=== PATIENT | female | born 1960 | race Caucasian/White ===

== ENCOUNTER 2018-01-17 17:03 | Inpatient (IN) ==
[2018-01-17] MEDS ORDERED: Acetaminophen 325 MG Tablet PO ONE (17:18)
[2018-01-17] MEDS ORDERED: Sod Chloride 0.9% Inj 1,000 ML IV.SIG SCH (17:30)
--- NOTE | 2018-01-17 17:32 | ED ---
HPI General Chief Complaint: Fever Stated Complaint: fever/chills/nausea/weakness/hx kidney trans Time Seen by Provider: 01/17/18 17:09 Source: patient Mode of arrival: ambulatory Limitations: no limitations History of Present Illness HPI Narrative: The patient is a 57-year-old female who presents to the emergency department for fever, chills, malaise, and myalgias. The patient is a 57-year-old female who has a history of kidney and pancreatic transplant that was performed at the [facility] in [place], [place]. The patient is followed locally by her primary physician, Dr. Jose Pollard, and her dry end operator, Dr. Garcia. The patient states she is currently on CellCept and Prograf, was on prednisone 3 weeks ago for 1 week for possible early rejection. The patient states she developed chills on Wednesday and currently complains of chills, subjective fever, mild myalgias, and generalized malaise. The patient called the nurse at the [facility] earlier today and another individual called her back stating that there was urine in her urine sample from last Wednesday, performed at [facility]. The patient is unsure if there is any culture performed. The patient called her primary physician, Dr. Pollard, who prescribed her doxycycline and Cipro and schedule an appointment for tomorrow morning. However, he advised her to come to the emergency department immediately if her symptoms progressed. The patient notes a minimal dry nonproductive cough which is chronic, mild nausea, but denies any vomiting, diarrhea, or abdominal pain. She denies any dysuria. The patient did receive her influenza vaccination this year. The patient's symptoms are moderate and progressive. MD complaint: Reports fever, malaise and weakness Onset (ago): day(s) Temperature Source: subjective Context: Reports on immunosuppressant(s) Associated symptoms: Reports chills, myalgias and nausea Relieving factors: nothing Exacerbating factors: nothing Treatments prior to arrival fever: Reports antibiotics Related Data Home Medications Medication Instructions Recorded Confirmed aspirin [Aspirin Low Dose] 81 mg PO DAILY 01/17/18 01/17/18 cholecalciferol (vitamin D3) 2,000 unit PO DAILY 01/17/18 01/17/18 [Vitamin D3] gabapentin 100 mg PO HS 01/17/18 01/17/18 magnesium 0 mg PO DAILY 01/17/18 01/17/18 metoprolol tartrate 100 mg PO BID 01/17/18 01/17/18 multivitamin 1 tab PO DAILY 01/17/18 01/17/18 mycophenolate mofetil [CellCept] 500 mg PO BID 01/17/18 01/17/18 nifedipine 30 mg PO BID 01/17/18 01/17/18 spironolactone 25 mg PO DAILY 01/17/18 01/17/18 tacrolimus [Prograf] 2 mg PO Q12H 01/17/18 01/17/18 Allergies Allergy/AdvReac Type Severity Reaction Status Date / Time No Known Allergies Allergy Verified 01/17/18 17:47 Review of Systems ROS: all other systems reviewed are negative [facility] Medical History Medical History Blind right eye (Acute) Chronic back pain (Acute) High cholesterol (Acute) Hypertension (Acute) Surgical History Surgical History Kidney transplant status (Acute) Pancreas transplant status (Acute) Social History Social History Substance History: No History of Abuse Smoking Status: Former smoker How Often Do You Have a Drink Containing Alcohol: Never Recent Travel in [facility] within the Last 8 Weeks: No Recent Out of Country Travel within the Last 8 Weeks: No Exam Narrative Exam Narrative: GENERAL: Awake, alert, pleasant 57-year-old female who appears her stated age and is in no acute respiratory distress. SKIN: Focused skin assessment warm/dry. HEAD: Atraumatic. Normocephalic. EYES: Pupils equal and round. No scleral icterus. No injection or drainage. ENT: No nasal bleeding or discharge. Mucous membranes pink and moist. NECK: Trachea midline. No JVD. CARDIOVASCULAR: Regular, tachycardic with a heart rate of 100. RESPIRATORY: No accessory muscle use. Clear to auscultation. Breath sounds equal bilaterally. GASTROINTESTINAL: Abdomen soft, well-healed scar from the umbilicus inferiorly, no rebound tenderness, guarding, rigidity. MUSCULOSKELETAL: No obvious deformities. No clubbing. No cyanosis. No edema. NEUROLOGICAL: Awake and alert. No obvious cranial nerve deficits. Motor grossly within normal limits. Normal speech. PSYCHIATRIC: Appropriate mood and affect; insight and judgment normal. Course Initial Documented Vital Signs Temperature 100 F H 01/17/18 17:08 Pulse Rate 101 H 01/17/18 17:08 Respiratory Rate 16 01/17/18 17:08 Blood Pressure 130/60 01/17/18 17:08 Pulse Oximetry 96 01/17/18 17:08 Last Documented Vital Signs Temperature 98.7 F 01/17/18 18:30 Pulse Rate 78 01/17/18 18:30 Respiratory Rate 18 01/17/18 18:30 Blood Pressure 146/67 H 01/17/18 18:30 Pulse Oximetry 96 01/17/18 18:30 Medical Decision Making MDM Narrative Medical decision making narrative: IV was established, labs are drawn and sent, and the patient was placed on cardiac telemetry monitoring and continuous pulse oximetry monitoring. Lactic acid, blood culture, and UA with urine culture were sent to lab. Chest x-ray was obtained. Influenza screen was sent to lab. The patient was administered 1 L of IV fluids, Zofran 4 mg intravenously, and cefepime 2 g intravenously. Chest x-ray is unremarkable. Influenza screen is negative. White count is within normal limits and lactic acid is unremarkable. UA does reveal WBCs, patient is already had Cipro and doxy, therefore, urine culture was ordered. Blood cultures are pending. I discussed the patient with her transplant dry end operator, Dr. Garcia, who recommends admission. The patient has [facility], therefore, I discussed the patient with Dr. Posey who agrees with admission. I also discussed the patient with Dr. Pollard, he is aware the patient will be admitted, as he is the patient's primary physician. Medical Screen Exam Complete: Yes Emergency Medical Condition: Yes Differential Diagnosis Differential Diagnosis: Differential diagnosis includes sepsis, UTI, pyelonephritis, influenza, pneumonia, immunosuppressed, viral syndrome, renal failure, rejection, dehydration. Lab Data Result diagrams: 01/17/18 17:35 01/17/18 17:35 Lab Results 01/17/18 01/17/18 01/17/18 Range/Units 17:30 17:35 17:35 CBC w Diff Auto diff final WBC 8.8 (4.0-11.0) th/mm3 RBC 3.58 L (4.00-5.30) mil/mm3 Hgb 11.2 L (11.6-15.3) gm/dL Hct 33.2 L (35.0-46.0) % MCV 92.5 (80.0-100.0) fL MCH 31.2 (27.0-34.0) pg MCHC 33.7 (32.0-36.0) % RDW 12.8 (11.6-17.2) % Plt Count 278 (150-450) th/mm3 MPV 7.9 (7.0-11.0) fL Neut % (Auto) 71.7 H (16.0-70.0) % Lymph % (Auto) 18.6 (9.0-44.0) % Walsh % (Auto) 9.1 H (0.0-8.0) % Eos % (Auto) 0.4 (0.0-4.0) % Baso % (Auto) 0.2 (0.0-2.0) % Neut # (Auto) 6.4 (1.8-7.7) th/mm3 Lymph # (Auto) 1.6 (1.0-4.8) th/mm3 Walsh # (Auto) 0.8 (0.0-0.9) th/mm3 Eos # (Auto) 0.0 (0.0-0.4) th/mm3 Baso # (Auto) 0.0 (0.0-0.2) th/mm3 WBC Differential . Differential Comment . Sodium 133 L (136-145) meq/L Potassium 4.3 (3.5-5.1) meq/L Chloride 101 (98-107) meq/L Carbon Dioxide 24.4 (21.0-32.0) meq/L Anion Gap 8 (5-15) meq/L BUN 20 H (7-18) mg/dL Creatinine 1.50 H (0.50-1.00) mg/dL Estimated GFR 36 L (>89) mL/min Random Glucose 128 H (74-106) mg/dL Lactic Acid (0.4-2.0) mmol/L Calcium 8.8 (8.5-10.1) mg/dL Magnesium 1.7 (1.5-2.5) mg/dL Total Bilirubin 1.0 (0.2-1.0) mg/dL AST 56 H (15-37) U/L ALT 60 H (10-53) U/L Alkaline Phosphatase 431 H (45-117) U/L Total Protein 7.5 (6.4-8.2) g/dL Albumin 3.3 L (3.4-5.0) g/dL Urine Color Yellow (Yellw/Straw) Urine Clarity Clear (Clear) Urine pH 8.0 (5.0-8.5) Ur Specific [place] 1.020 (1.002-1.035) Urine Protein Trace (Neg-Trace) mg/dL Urine Glucose (UA) Negative (Negative) mg/dL Urine Ketones Negative (Negative) mg/dL Urine Occult Blood Negative (Negative) Urine Nitrate Negative (Negative) Urine Bilirubin Negative (Negative) Urine Urobilinogen 0.2 (Less than 2) mg/dL Ur Leukocyte Esterase Negative (Negative) Urine RBC 0-3 (0-3) /hpf Urine WBC 9-20 H (0-5) /hpf Ur Squamous Epith Cells 0-5 (0-5) /hpf Urine Bacteria Few H (None) /hpf Urine Mucus Rare H (Occasional) /lpf Micro UA Comment Culture not ind Ur Microscopic Review Microscopic reviewed Urine Culture Comments Culture not ind 01/17/18 Range/Units 17:35 CBC w Diff WBC (4.0-11.0) th/mm3 RBC (4.00-5.30) mil/mm3 Hgb (11.6-15.3) gm/dL Hct (35.0-46.0) % MCV (80.0-100.0) fL MCH (27.0-34.0) pg MCHC (32.0-36.0) % RDW (11.6-17.2) % Plt Count (150-450) th/mm3 MPV (7.0-11.0) fL Neut % (Auto) (16.0-70.0) % Lymph % (Auto) (9.0-44.0) % Walsh % (Auto) (0.0-8.0) % Eos % (Auto) (0.0-4.0) % Baso % (Auto) (0.0-2.0) % Neut # (Auto) (1.8-7.7) th/mm3 Lymph # (Auto) (1.0-4.8) th/mm3 Walsh # (Auto) (0.0-0.9) th/mm3 Eos # (Auto) (0.0-0.4) th/mm3 Baso # (Auto) (0.0-0.2) th/mm3 WBC Differential Differential Comment Sodium (136-145) meq/L Potassium (3.5-5.1) meq/L Chloride (98-107) meq/L Carbon Dioxide (21.0-32.0) meq/L Anion Gap (5-15) meq/L BUN (7-18) mg/dL Creatinine (0.50-1.00) mg/dL Estimated GFR (>89) mL/min Random Glucose (74-106) mg/dL Lactic Acid 1.3 (0.4-2.0) mmol/L Calcium (8.5-10.1) mg/dL Magnesium (1.5-2.5) mg/dL Total Bilirubin (0.2-1.0) mg/dL AST (15-37) U/L ALT (10-53) U/L Alkaline Phosphatase (45-117) U/L Total Protein (6.4-8.2) g/dL Albumin (3.4-5.0) g/dL Urine Color (Yellw/Straw) Urine Clarity (Clear) Urine pH (5.0-8.5) Ur Specific [place] (1.002-1.035) Urine Protein (Neg-Trace) mg/dL Urine Glucose (UA) (Negative) mg/dL Urine Ketones (Negative) mg/dL Urine Occult Blood (Negative) Urine Nitrate (Negative) Urine Bilirubin (Negative) Urine Urobilinogen (Less than 2) mg/dL Ur Leukocyte Esterase (Negative) Urine RBC (0-3) /hpf Urine WBC (0-5) /hpf Ur Squamous Epith Cells (0-5) /hpf Urine Bacteria (None) /hpf Urine Mucus (Occasional) /lpf Micro UA Comment Ur Microscopic Review Urine Culture Comments Imaging Data Radiologist's impression: Chest X-Ray 01/17/18 17:18 CONCLUSION: No acute findings. ECG Data EKG Prior to Arrival: No Attestation: I personally reviewed and interpreted this ECG as follows: Interpretation: EKG reveals normal sinus rhythm with a rate 87. Inverted T wave in lead III. Discharge Plan Discharge Disposition Patient Disposition: ED Admit(ED Internal Use Only) Discharge Condition Condition: Stable Discharge Order Discharge Orders: ED Use Only Admit Order (Routine); Ordered 01/17/18 Ordered By: Ad Sage Discharge Details Diagnosis: Pyelonephritis, Immunocompromised, Renal insufficiency Physicians Team ED Provider: Ad Sage Primary Care Provider: Rick Pollard Rxs /Orders / Referrals /Forms Prescriptions: No Action multivitamin Tablet 1 tab PO DAILY RF: 0 metoprolol tartrate 100 mg Tablet 100 mg PO BID RF: 0 nifedipine 30 mg Tablet Extended Release 30 mg PO BID RF: 0 aspirin [Aspirin Low Dose] 81 mg Tablet,Delayed Release (Dr/Ec) 81 mg PO DAILY RF: 0 spironolactone 25 mg Tablet 25 mg PO DAILY RF: 0 mycophenolate mofetil [CellCept] 500 mg Tablet 500 mg PO BID RF: 0 magnesium 250 mg Tablet PO DAILY RF: 0 gabapentin 100 mg Capsule 100 mg PO HS RF: 0 tacrolimus [Prograf] 1 mg Capsule 2 mg PO Q12H RF: 0 cholecalciferol (vitamin D3) [Vitamin D3] 2,000 unit Capsule 2,000 unit PO DAILY RF: 0 Discharge Interventions Interventions: Vital Signs Last Done: 01/17/18 18:30 Status ED Status: Admitted Patient
[2018-01-17 17:52] LABS: Baso % (Auto) 0.2 % (0.0-2.0); Eos % (Auto) 0.4 % (0.0-4.0); Hematocrit 33.2 % (35.0-46.0); Hemoglobin 11.2 gm/dL (11.6-15.3); Lymph # (Auto) 1.6 th/mm3 (1.0-4.8); Lymph % (Auto) 18.6 % (9.0-44.0); Mean Corpuscular HGB Conc 33.7 % (32.0-36.0); Mean Corpuscular Hemoglobin 31.2 pg (27.0-34.0); Mean Corpuscular Volume 92.5 fL (80.0-100.0); Mean Platelet Volume 7.9 fL (7.0-11.0); Mono # (Auto) 0.8 th/mm3 (0.0-0.9); Mono % (Auto) 9.1 % (0.0-8.0); Neut # (Auto) 6.4 th/mm3 (1.8-7.7); Neut % (Auto) 71.7 % (16.0-70.0); Platelet Count 278 th/mm3 (150-450); Red Blood Count 3.58 mil/mm3 (4.00-5.30); Red Cell Distribution Width 12.8 % (11.6-17.2); White Blood Count 8.8 th/mm3 (4.0-11.0)
[2018-01-17 17:55] LABS: Bilirubin,Urine Negative (Negative); Clarity,Urine Clear (Clear); Color,Urine Yellow (Yellw/Straw); Glucose,Urine (UA) Negative (Negative); Leukocyte Esterase,Urine Negative (Negative); Nitrite,Urine Negative (Negative); Urobilinogen,Urine 0.2 mg/dL (Less than 2)
[2018-01-17 18:06] LABS: Bacteria,Urine Few /hpf; Mucus,Urine Rare /lpf (Occasional); RBC,Urine 0-3 /hpf (0-3); Squamous Epithelial Cell,Urine 0-5 /hpf (0-5)
[2018-01-17 18:16] LABS: Chloride 101 meq/L (98-107); Potassium 4.3 meq/L (3.5-5.1); Sodium 133 meq/L (136-145)
[2018-01-17 18:20] LABS: Albumin 3.3 g/dL (3.4-5.0); Anion Gap 8 meq/L (5-15); Blood Urea Nitrogen 20 mg/dL (7-18); Calcium 8.8 mg/dL (8.5-10.1); Carbon Dioxide 24.4 meq/L (21.0-32.0); Glucose,Random 128 mg/dL (74-106); Magnesium 1.7 mg/dL (1.5-2.5)
--- NOTE | 2018-01-17 18:21 | XR ---
EXAM DATE: 01/17/2018 6:16 PM EST AGE/SEX: 57 years / Female INDICATIONS: Vomiting, nausea, fever. CLINICAL DATA: This is the patient's initial encounter. Patient reports that signs and symptoms have been present for 2 days and indicates a pain score of 5/10. MEDICAL/SURGICAL HISTORY: Renal disease. . Kidney and pancreas transplant. COMPARISON: No prior exams available for comparison. FINDINGS: A single AP view of the chest demonstrates the lungs to be symmetrically aerated without evidence of mass, infiltrate or effusion. The cardiomediastinal contours are unremarkable. Osseous structures a re intact. CONCLUSION: No acute findings. Electronically signed by: Lokesh Burrows MD 01/17/2018 6:19 PM EST
[2018-01-17 18:23] LABS: Alanine Aminotransferase 60 U/L (10-53); Aspartate Aminotransferase 56 U/L (15-37); Glomerular Filtration Rate 36 mL/min (>89)
[2018-01-17 18:25] LABS: Total Protein 7.5 g/dL (6.4-8.2)
[2018-01-17 18:26] LABS: Alkaline Phosphatase 431 U/L (45-117)
[2018-01-17] MEDS ORDERED: Acetaminophen 325 MG Tablet PO PRN (19:37)
[2018-01-17] MEDS: Metoprolol Tartrate 100 MG Tablet PO SCH (20:33)
[2018-01-17] MEDS: Gabapentin 100 MG Capsule PO SCH (20:33)
[2018-01-17] MEDS: Sod Chloride 0.9% Inj 1,000 ML IV.CONT SCH (20:45)
[2018-01-17] MEDS: Senna/Docusate Sodium 8.6/50 MG Tablet PO SCH (21:23)
[2018-01-18] MEDS: Sod Chloride 0.9% Inj 1,000 ML IV.CONT SCH (05:13)
[2018-01-18 06:11] LABS: Baso % (Auto) 0.1 % (0.0-2.0); Eos % (Auto) 0.6 % (0.0-4.0); Hematocrit 31.2 % (35.0-46.0); Hemoglobin 10.2 gm/dL (11.6-15.3); Lymph % (Auto) 25.2 % (9.0-44.0); Mean Corpuscular HGB Conc 32.7 % (32.0-36.0); Mean Corpuscular Hemoglobin 30.3 pg (27.0-34.0); Mean Corpuscular Volume 92.6 fL (80.0-100.0); Mono # (Auto) 0.9 th/mm3 (0.0-0.9); Mono % (Auto) 11.4 % (0.0-8.0); Neut # (Auto) 4.8 th/mm3 (1.8-7.7); Neut % (Auto) 62.7 % (16.0-70.0); Platelet Count 243 th/mm3 (150-450); Red Blood Count 3.37 mil/mm3 (4.00-5.30); White Blood Count 7.8 th/mm3 (4.0-11.0)
[2018-01-18 06:31] LABS: Alanine Aminotransferase 60 U/L (10-53); Albumin 2.8 g/dL (3.4-5.0); Alkaline Phosphatase 373 U/L (45-117); Anion Gap 9 meq/L (5-15); Aspartate Aminotransferase 52 U/L (15-37); Blood Urea Nitrogen 17 mg/dL (7-18); Calcium 8.5 mg/dL (8.5-10.1); Carbon Dioxide 24.3 meq/L (21.0-32.0); Chloride 109 meq/L (98-107); Glomerular Filtration Rate 43 mL/min (>89); Glucose,Random 114 mg/dL (74-106); Potassium 4.3 meq/L (3.5-5.1); Sodium 142 meq/L (136-145); Total Protein 6.8 g/dL (6.4-8.2)
--- NOTE | 2018-01-18 08:35 | ECG ---
Date Performed: 01/17/2018 Time Performed: 17:30:11 PTAGE: 57 years EKG: Sinus rhythm BORDERLINE LEFT AXIS DEVIATION BORDERLINE ECG PREVIOUS TRACING : 12/05/2014 10.00 DOCTOR: Tariq Hunt Interpretating Date/Time 01/18/2018 08:31:37
[2018-01-18] MEDS: Senna/Docusate Sodium 8.6/50 MG Tablet PO SCH ×3 (09:07→21:30)
[2018-01-18] MEDS: Magnesium Oxide 400 MG Tablet PO SCH (09:09)
[2018-01-18] MEDS: Spironolactone 25 MG Tablet PO SCH (09:09)
[2018-01-18] MEDS: Metoprolol Tartrate 100 MG Tablet PO SCH ×2 (09:09→21:23)
--- NOTE | 2018-01-18 10:18 | P.CONNP ---
History of Present Illness Service: Nephrology Consult date: 01/18/18 Requesting Physician: Ad Sage Reason for Consult: Kidney and pancreas transplantation Primary Care Provider: Rick Pollard MD, PhD Chief Complaint: Fever History of Present Illness: Patient is a 57-year-old white female with history of kidney and pancreas transplant at [facility] over 2 years ago, she has been treated for borderline rejection about 3 months ago, patient has BK virus and developed urinary tract infection for which she was given oral antibiotics, Cipro and doxycycline, patient took 2 doses and no fever did not improve she has body aches as well and came to emergency with a fever and chills of 100 F, patient was treated with cefepime, urine cultures are pending and admitted for possible urinary tract infection, since last night her fever did improve. Patient has a creatinine of 1.3 which is around her baseline. She has been maintained on Prograf and CellCept. Review of Systems Constitutional: Reports chills, Reports fever(s), Reports weight gain Eyes: Denies blind spots, Denies blurry vision, Denies bulging eyes, Denies change in vision, Denies double vision, Denies discharge, Denies dry eyes, Denies floaters, Denies irritation, Denies itchy eyes, Denies loss of vision, Denies pain, Denies requires corrective lenses, Denies sensitivity to light, Denies other Ears, Nose, Mouth, and Throat: Denies abnormal hearing, Denies bleeding gums, Denies bad breath, Denies change in voice, Denies dental pain, Denies difficulty swallowing, Denies dizziness, Denies dry mouth, Denies ear discharge , Denies ear pain, Denies facial pain, Denies headache(s), Denies hearing loss, Denies hoarseness, Denies lip swelling, Denies nosebleed, Denies mouth lesions, Denies mouth pain, Denies nasal congestion, Denies nasal discharge, Denies nasal obstruction, Denies nasal trauma, Denies neck lump, Denies neck pain, Denies nose pain, Denies pain with swallowing, Denies poor balance, Denies post nasal drip, Denies ringing in the ears, Denies sinus pain, Denies sinus pressure , Denies sore throat, Denies throat swelling, Denies tongue swelling, Denies other Cardiovascular: Reports leg swelling, Denies chest pain, Denies chest pain at rest, Denies chest pain with activity, Denies excessive sweating, Denies fainting, Denies fast heart rate, Denies foot swelling, Denies generalized swelling, Denies irregular heart rhythm, Denies leg pain with activity, Denies leg sores, Denies lightheadedness, Denies radiating jaw, neck or arm pain, Denies rapid, pounding, or irregular heartbeat, Denies shortness of breath, Denies shortness of breath with activity, Denies shortness of breath when lying down, Denies shortness of breath causing sudden awakening, Denies slow heart rate, Denies other Respiratory: Denies change in phlegm color, Denies chest congestion, Denies cough, Denies coughing up blood, Denies excessive phlegm production, Denies pain on inspiration, Denies pain with cough, Denies shortness of breath, Denies shortness of breath with activity, Denies snoring, Denies stridor, Denies wheezing, Denies other Gastrointestinal: Denies abdominal pain, Denies belching, Denies black, tarry stools, Denies bloating, Denies bright, red blood in stools, Denies change in bowel habits, Denies constant urge to pass stool, Denies change in stools, Denies coffee ground vomit, Denies constipation, Denies cramping, Denies difficulty swallowing, Denies excessive passing of gas, Denies feeling full early, Denies heartburn, Denies incontinent of stools, Denies loose stools, Denies nausea, Denies pain with swallowing, Denies vomiting, Denies vomiting blood, Denies other Musculoskeletal: Denies abnormal walking, Denies back pain, Denies body aches, Denies decreased muscle mass, Denies deformity, Denies joint pain, Denies joint swelling, Denies limited joint movement, Denies loss of height, Denies muscle cramps, Denies neck pain, Denies numbness, Denies radiating pain into limb, Denies stiffness, Denies tingling, Denies other Neurologic: Reports weakness Endocrine: Denies cold intolerance, Denies excessive sweating, Denies flushing, Denies heat intolerance, Denies increased hunger, Denies increased thirst, Denies increased urination, Denies rapid, pounding, or irregular heartbeat, Denies other Hematologic/Lymphatic: Denies easy bleeding, Denies easy bruising, Denies enlarged lymph nodes, Denies other Allergic/Immunologic: Denies GI upset with certain foods, Denies hives, Denies itchy eyes, Denies lip swelling, Denies seasonal runny nose, Denies throat swelling, Denies tongue swelling, Denies wheezing, Denies other PMFSH - History History Provided By: Patient - Medical History Medical History: Medical History (Last Reviewed 01/18/18 @ 10:13 by James Garcia MD) Blind right eye Chronic back pain High cholesterol Hypertension - Surgical History Surgical History: Surgical History (Last Reviewed 01/18/18 @ 10:13 by James Garcia MD) Kidney transplant status Pancreas transplant status - Family History Family History: Family History (Last Updated 01/18/18 @ 10:13 by James Garcia MD) Other Family history non-contributory - Social History I have reviewed the patient's Social History: Yes - Tobacco History Second Hand Smoke Exposure: No Tobacco Use In Past 30 Days: No Smoking Status: Former smoker - Alcohol History How Often Do You Have a Drink Containing Alcohol: Never - Substance Use History Substance History: No History of Abuse - Travel History Recent Travel in the [place] Within the Last 8 Weeks: No Recent Travel Out of the Country Within the Last 8 Weeks: No - Immunization History Tetanus Immunization: >5 Years Hx Influenza Vaccine This Season: Yes Medications and Allergies Active Medications: Active Medications Acetaminophen (Tylenol) 650 mg PO Q4H PRN PRN Reason: Temp > 100.4 Last Admin: 01/18/18 00:52 Dose: 650 mg Al Hydroxide/Mg Hydroxide (Milk Of Kem Liq) 30 ml PO Q12H PRN PRN Reason: Mild Constipation Aspirin (Ecotrin) 81 mg PO DAILY [facility] Last Admin: 01/18/18 09:09 Dose: 81 mg Gabapentin (Neurontin) 100 mg PO HS [facility] Last Admin: 01/17/18 20:33 Dose: Not Given Sodium Chloride (Ns Inj) 1,000 mls @ 100 mls/hr IV.CONT .Q10H [facility] Last Admin: 01/18/18 05:13 Dose: 100 mls/hr Cefepime HCl 2,000 mg/ Sodium (Chloride) 100 mls @ 200 mls/hr IV.SIG Q12H [facility] Last Infusion: 01/18/18 05:45 Dose: Infused Magnesium Oxide (Mag-Ox) 400 mg PO DAILY [facility] Last Admin: 01/18/18 09:09 Dose: 400 mg Metoprolol Tartrate (Lopressor) 100 mg PO BID [facility] Last Admin: 01/18/18 09:09 Dose: 100 mg Multivitamins (Theragran) 1 tab PO DAILY [facility] Last Admin: 01/18/18 09:10 Dose: 1 tab Mycophenolate Mofetil (Cellcept) 500 mg PO BID@0600,1800 [facility] Last Admin: 01/18/18 06:46 Dose: 500 mg Nifedipine (Procardia Xl) 30 mg PO BID [facility] Last Admin: 01/18/18 09:10 Dose: 30 mg Ondansetron HCl (Zofran Inj) 4 mg IV.PUSH Q6H PRN PRN Reason: NAUSEA OR VOMITING Senna/Docusate Sodium (Arabella-Colace) 1 tab PO BID [facility] Last Admin: 01/18/18 09:07 Dose: Not Given Sodium Chloride (Ns Flush) 2 ml IV.FLUSH BID [facility] Last Admin: 01/18/18 09:10 Dose: Not Given Sodium Chloride (Ns Flush) 2 ml IV.FLUSH PRN PRN PRN Reason: FLUSH AFTER USING IV ACCESS Spironolactone (Aldactone) 25 mg PO DAILY [facility] Last Admin: 01/18/18 09:09 Dose: 25 mg Tacrolimus (Prograf) 2 mg PO Q12H [facility] Last Admin: 01/18/18 06:46 Dose: 2 mg Vitamin D (Vitamin D3) 2,000 unit PO DAILY [facility] Last Admin: 01/18/18 09:10 Dose: 2,000 unit Allergies Allergy/AdvReac Type Severity Reaction Status Date / Time No Known Allergies Allergy Verified 01/17/18 17:47 Home Medications Medication Instructions Recorded Confirmed Type aspirin [Aspirin Low Dose] 81 mg PO DAILY 01/17/18 01/17/18 History cholecalciferol (vitamin D3) 2,000 unit PO DAILY 01/17/18 01/17/18 History [Vitamin D3] gabapentin 100 mg PO HS 01/17/18 01/17/18 History magnesium 0 mg PO DAILY 01/17/18 01/17/18 History metoprolol tartrate 100 mg PO BID 01/17/18 01/17/18 History multivitamin 1 tab PO DAILY 01/17/18 01/17/18 History mycophenolate mofetil [CellCept] 500 mg PO BID 01/17/18 01/17/18 History nifedipine 30 mg PO BID 01/17/18 01/17/18 History spironolactone 25 mg PO DAILY 01/17/18 01/17/18 History tacrolimus [Prograf] 2 mg PO Q12H 01/17/18 01/17/18 History Exam Vital signs: Vital Signs 01/17/18 17:08 01/17/18 17:50 01/17/18 18:30 Temperature 100 F H 98.7 F Pulse Rate 101 H 72 78 Respiratory Rate 16 18 Blood Pressure 130/60 146/67 H Pulse Oximetry 96 94 L 96 01/17/18 19:20 01/17/18 20:00 01/17/18 21:03 Temperature 98.2 F 98.4 F 98.6 F Pulse Rate 80 82 83 Respiratory Rate 18 18 18 Blood Pressure 140/62 109/52 L 140/73 Pulse Oximetry 18 L 01/17/18 22:00 01/18/18 00:00 01/18/18 08:32 Temperature 97.8 F Pulse Rate 90 Respiratory Rate 18 Blood Pressure 118/56 L Pulse Oximetry 92 L 94 L 92 L 01/18/18 08:56 Temperature 98.8 F Pulse Rate 91 H Respiratory Rate 18 Blood Pressure 120/56 L Pulse Oximetry 93 L Intake & Output 01/17/18 01/18/18 01/18/18 18:59 06:59 18:59 Intake Total 1100 / 1100 1000 / 1000 Output Total 200 / 200 Balance 1100 / 1100 800 / 800 Weight 94 kg 90.2 kg Intake: IV 1100 / 1100 1000 / 1000 NS Inj 1,000 ML @ 100 mls/hr IV 900 / 900 .CONT .Q10H [facility] Rx#:[id number] Maxipime Inj 2,000 MG In NS Inj 100 / 100 100 / 100 100 ML @ 200 mls/hr IV.SIG Q12H [facility] Rx#:[id number] NS Inj 1,000 ML @ 1000 mls/hr 1000 / 1000 IV.SIG BOLUS [facility] Rx#:[id number] Oral 0 / 0 Output: Urine 200 / 200 Other: Date of Last Bowel Movement 01/17/18 01/17/18 Weight On Admission 93.1 kg Narrative: GENERAL: Well-nourished, well-developed patient. SKIN: Warm and dry. HEAD: Normocephalic. EYES: No scleral icterus. No injection or drainage. NECK: Supple, trachea midline. No JVD or lymphadenopathy. CARDIOVASCULAR: Regular rate and rhythm without murmurs, gallops, or rubs. RESPIRATORY: Breath sounds equal bilaterally. No accessory muscle use. GASTROINTESTINAL: Abdomen soft, non-tender, nondistended. EXTREMITIES: Mild edema NEUROLOGICAL: Awake, alert, and oriented x 3. Non-focal. Results - Lab Results 01/18/18 05:33 01/18/18 05:33 Most recent lab results Calcium 8.5 mg/dL (8.5-10.1) 01/18/18 05:33 Magnesium 1.7 mg/dL (1.5-2.5) 01/17/18 17:35 Assessment and Plan - Assessment (1) History of simultaneous kidney and pancreas transplant Code(s): Z94.0 - Kidney transplant status; Z94.83 - Pancreas transplant status Status: Acute (2) UTI (urinary tract infection) Code(s): N39.0 - Urinary tract infection, site not specified Status: Acute (3) Immunocompromised Code(s): D84.9 - Immunodeficiency, unspecified Status: Acute (4) Renal insufficiency Code(s): N28.9 - Disorder of kidney and ureter, unspecified Status: Acute (5) LFT elevation Code(s): R94.5 - Abnormal results of liver function studies Status: Acute - Plan Patient did responded to IV antibiotics and we will follow the cultures, she also has BK virus infection and is being followed at [facility] Once she is stable and on oral antibiotics, can be discharged to be followed at the [facility] Creatinine is at baseline 1.3 improved after hydration decline from 1.5 Blood sugar is elevated discussed 114 try to lose weight and be on diet Continue to hydrate she has history of elevated LFTS after her transplant and 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
--- NOTE | 2018-01-18 13:30 | P.HP ---
History of Present Illness Service: internal medicine Primary Care Physician: Rick Pollard MD, PhD Chief Complaint: Fever History of Present Illness: 57 y/o female s/p pancreas/kidney transplant who presented to the ER for fever and chills. She states startng last wednesday she was getting episodic chills and over the weekend she had a temp in the 100's, She called her [employer] field coordinator yesterday and was told that the urine she had done last wed showed white blood cells and possible infection. She states she called Dr Pollard for antibiotics and he offered to see her as well as give her antibiotics. She was also told to come to the ER if she felt worse. She had an appt with him today and picked up cipro and doxycycline yesterday of which she took one dose of each. At dinner time she was nauseous and sweaty and became anxious as her family was very concerned she may have an infection so she presented to the ER. She states her last episode of chills was aprox 1 am today. She denies nasal congesttion or sore throat. She has a cough that is chronic that is a little worse lately when she lays down at night, denies stomach pain or diarrhea, one episode of nausea with dinner last night that she thinks may be have been due to anxiety, She denies dysuria or urgency. she does have nocturia. - Diagnosis (1) Immunocompromised (2) Renal insufficiency (3) History of simultaneous kidney and pancreas transplant (4) UTI (urinary tract infection) (5) LFT elevation Inpatient Certification: I certify that the inpatient services were ordered in accordance with Medicare regulations governing the order. This includes certification that hospital inpatient services are reasonable and necessary and in the case of services not specified as inpatient-only under 42 CFR 419.22(n), that they are appropriately provided as inpatient services in accordance to with the 2-midnight benchmark under 43 CFR 412.3(e) Estimated Total Length of Stay (Days): 2 Plans for Post Hospital Care: Not yet determined Review of Systems All other systems reviewed negative except as stated in HPI [facility] - History History Provided By: Patient, Medical Record - Medical History Medical History: Medical History (Last Updated 01/18/18 @ 13:11 by Ashlyn Enriquez MD) Blind right eye Chronic back pain Fatty liver High cholesterol Hypertension - Surgical History Surgical History: Surgical History (Last Reviewed 01/18/18 @ 13:11 by Ashlyn Enriquez MD) Kidney transplant status Pancreas transplant status - Family History Family History: Family History (Last Reviewed 01/18/18 @ 13:11 by Ashlyn Enriquez MD) Other Family history non-contributory - Social History I have reviewed the patient's Social History: Yes - Tobacco History Second Hand Smoke Exposure: No Tobacco Use In Past 30 Days: No Smoking Status: Former smoker - Alcohol History How Often Do You Have a Drink Containing Alcohol: Never - Substance Use History Substance History: No History of Abuse - Travel History Recent Travel in the [place] Within the Last 8 Weeks: No Recent Travel Out of the Country Within the Last 8 Weeks: No - Immunization History Tetanus Immunization: >5 Years Hx Influenza Vaccine This Season: Yes Medications and Allergies Active Medications: Active Medications Acetaminophen (Tylenol) 650 mg PO Q4H PRN PRN Reason: Temp > 100.4 Last Admin: 01/18/18 00:52 Dose: 650 mg Al Hydroxide/Mg Hydroxide (Milk Of Kem Linelida) 30 ml PO Q12H PRN PRN Reason: Mild Constipation Aspirin (Ecotrin) 81 mg PO DAILY [facility] Last Admin: 01/18/18 09:09 Dose: 81 mg Gabapentin (Neurontin) 100 mg PO HS [facility] Last Admin: 01/17/18 20:33 Dose: Not Given Sodium Chloride (Ns Inj) 1,000 mls @ 100 mls/hr IV.CONT .Q10H [facility] Last Admin: 01/18/18 05:13 Dose: 100 mls/hr Cefepime HCl 2,000 mg/ Sodium (Chloride) 100 mls @ 200 mls/hr IV.SIG Q12H [facility] Last Infusion: 01/18/18 05:45 Dose: Infused Magnesium Oxide (Mag-Ox) 400 mg PO DAILY [facility] Last Admin: 01/18/18 09:09 Dose: 400 mg Metoprolol Tartrate (Lopressor) 100 mg PO BID [facility] Last Admin: 01/18/18 09:09 Dose: 100 mg Multivitamins (Theragran) 1 tab PO DAILY [facility] Last Admin: 01/18/18 09:10 Dose: 1 tab Mycophenolate Mofetil (Cellcept) 500 mg PO BID@0600,1800 [facility] Last Admin: 01/18/18 06:46 Dose: 500 mg Nifedipine (Procardia Xl) 30 mg PO BID [facility] Last Admin: 01/18/18 09:10 Dose: 30 mg Ondansetron HCl (Zofran Inj) 4 mg IV.PUSH Q6H PRN PRN Reason: NAUSEA OR VOMITING Senna/Docusate Sodium (Arabella-Colace) 1 tab PO BID [facility] Last Admin: 01/18/18 09:07 Dose: Not Given Sodium Chloride (Ns Flush) 2 ml IV.FLUSH BID [facility] Last Admin: 01/18/18 09:10 Dose: Not Given Sodium Chloride (Ns Flush) 2 ml IV.FLUSH PRN PRN PRN Reason: FLUSH AFTER USING IV ACCESS Spironolactone (Aldactone) 25 mg PO DAILY [facility] Last Admin: 01/18/18 09:09 Dose: 25 mg Tacrolimus (Prograf) 2 mg PO Q12H [facility] Last Admin: 01/18/18 06:46 Dose: 2 mg Vitamin D (Vitamin D3) 2,000 unit PO DAILY [facility] Last Admin: 01/18/18 09:10 Dose: 2,000 unit Allergies Allergy/AdvReac Type Severity Reaction Status Date / Time No Known Allergies Allergy Verified 01/17/18 17:47 Home Medications Medication Instructions Recorded Confirmed Type aspirin [Aspirin Low Dose] 81 mg PO DAILY 01/17/18 01/17/18 History cholecalciferol (vitamin D3) 2,000 unit PO DAILY 01/17/18 01/17/18 History [Vitamin D3] gabapentin 100 mg PO HS 01/17/18 01/17/18 History magnesium 0 mg PO DAILY 01/17/18 01/17/18 History metoprolol tartrate 100 mg PO BID 01/17/18 01/17/18 History multivitamin 1 tab PO DAILY 01/17/18 01/17/18 History mycophenolate mofetil [CellCept] 500 mg PO BID 01/17/18 01/17/18 History nifedipine 30 mg PO BID 01/17/18 01/17/18 History spironolactone 25 mg PO DAILY 01/17/18 01/17/18 History tacrolimus [Prograf] 2 mg PO Q12H 01/17/18 01/17/18 History Exam Vital signs: Vital Signs 01/17/18 17:08 01/17/18 17:50 01/17/18 18:30 Temperature 100 F H 98.7 F Pulse Rate 101 H 72 78 Respiratory Rate 16 18 Blood Pressure 130/60 146/67 H Pulse Oximetry 96 94 L 96 01/17/18 19:20 01/17/18 20:00 01/17/18 21:03 Temperature 98.2 F 98.4 F 98.6 F Pulse Rate 80 82 83 Respiratory Rate 18 18 18 Blood Pressure 140/62 109/52 L 140/73 Pulse Oximetry 18 L 01/17/18 22:00 01/18/18 00:00 01/18/18 08:32 Temperature 97.8 F Pulse Rate 90 Respiratory Rate 18 Blood Pressure 118/56 L Pulse Oximetry 92 L 94 L 92 L 01/18/18 08:56 01/18/18 12:58 Temperature 98.8 F 99.9 F H Pulse Rate 91 H 73 Respiratory Rate 18 18 Blood Pressure 120/56 L 125/62 Pulse Oximetry 93 L 95 Intake & Output 01/17/18 01/18/18 01/18/18 18:59 06:59 18:59 Intake Total 1100 / 1100 1000 / 1000 Output Total 200 / 200 Balance 1100 / 1100 800 / 800 Weight 94 kg 90.2 kg Intake: IV 1100 / 1100 1000 / 1000 NS Inj 1,000 ML @ 100 mls/hr IV 900 / 900 .CONT .Q10H [facility] Rx#:[id number] Maxipime Inj 2,000 MG In NS Inj 100 / 100 100 / 100 100 ML @ 200 mls/hr IV.SIG Q12H [facility] Rx#:[id number] NS Inj 1,000 ML @ 1000 mls/hr 1000 / 1000 IV.SIG BOLUS [facility] Rx#:[id number] Oral 0 / 0 Output: Urine 200 / 200 Other: Date of Last Bowel Movement 01/17/18 01/17/18 Weight On Admission 93.1 kg - Constitutional no acute distress, obese - Routine HEENT Exam Eye: Present: EOMI ENT: Present: mucous membranes moist, oropharynx clear - Routine Neck Exam Present: supple - Routine Respiratory Exam Present: CTA bilaterally - Routine Cardiovascular Exam Present: RRR - Routine Abdominal Exam Present: soft, normoactive bowel sounds - Routine Extremities Exam Present: edema Comments: trace edema - Routine Skin Exam Present: intact - Routine Neurological Exam Present: alert, oriented X3 Results - Labs CBC & Chem 7: 01/19/18 06:15 01/19/18 06:15 Labs: Laboratory Results - last 24 hr 01/17/18 01/17/18 01/17/18 17:30 17:35 17:35 CBC w Diff Auto diff final WBC 8.8 RBC 3.58 L Hgb 11.2 L Hct 33.2 L MCV 92.5 MCH 31.2 MCHC 33.7 RDW 12.8 Plt Count 278 MPV 7.9 Neut % (Auto) 71.7 H Lymph % (Auto) 18.6 [place] % (Auto) 9.1 H Eos % (Auto) 0.4 Baso % (Auto) 0.2 Neut # (Auto) 6.4 Lymph # (Auto) 1.6 [place] # (Auto) 0.8 Eos # (Auto) 0.0 Baso # (Auto) 0.0 WBC Differential . Differential Comment . Sodium 133 L Potassium 4.3 Chloride 101 Carbon Dioxide 24.4 Anion Gap 8 BUN 20 H Creatinine 1.50 H Estimated GFR 36 L Random Glucose 128 H Lactic Acid Calcium 8.8 Magnesium 1.7 Total Bilirubin 1.0 AST 56 H ALT 60 H Alkaline Phosphatase 431 H Total Protein 7.5 Albumin 3.3 L Urine Color Yellow Urine Clarity Clear Urine pH 8.0 Ur Specific [place] 1.020 Urine Protein Trace Urine Glucose (UA) Negative Urine Ketones Negative Urine Occult Blood Negative Urine Nitrate Negative Urine Bilirubin Negative Urine Urobilinogen 0.2 Ur Leukocyte Esterase Negative Urine RBC 0-3 Urine WBC 9-20 H Ur Squamous Epith Cells 0-5 Urine Bacteria Few H Urine Mucus Rare H Micro UA Comment Culture not ind Ur Microscopic Review Microscopic reviewed Urine Culture Comments Culture not ind 01/17/18 01/18/18 01/18/18 17:35 05:33 05:33 CBC w Diff Auto diff final WBC 7.8 RBC 3.37 L Hgb 10.2 L Hct 31.2 L MCV 92.6 MCH 30.3 MCHC 32.7 RDW 13.0 Plt Count 243 MPV 8.0 Neut % (Auto) 62.7 Lymph % (Auto) 25.2 [place] % (Auto) 11.4 H Eos % (Auto) 0.6 Baso % (Auto) 0.1 Neut # (Auto) 4.8 Lymph # (Auto) 2.0 [place] # (Auto) 0.9 Eos # (Auto) 0.0 Baso # (Auto) 0.0 WBC Differential . Differential Comment . Sodium 142 Potassium 4.3 Chloride 109 H D Carbon Dioxide 24.3 Anion Gap 9 BUN 17 Creatinine 1.30 H Estimated GFR 43 L Random Glucose 114 H Lactic Acid 1.3 Calcium 8.5 Magnesium Total Bilirubin 0.7 AST 52 H ALT 60 H Alkaline Phosphatase 373 H Total Protein 6.8 D Albumin 2.8 L Urine Color Urine Clarity Urine pH Ur Specific [place] Urine Protein Urine Glucose (UA) Urine Ketones Urine Occult Blood Urine Nitrate Urine Bilirubin Urine Urobilinogen Ur Leukocyte Esterase Urine RBC Urine WBC Ur Squamous Epith Cells Urine Bacteria Urine Mucus Micro UA Comment Ur Microscopic Review Urine Culture Comments - Imaging Impressions Chest X-Ray 01/17/18 17:18 CONCLUSION: No acute findings. Caprini VTE Risk Assessment Caprini VTE Risk Assessment: No/Low Risk (score <= 1) Caprini Risk Assessment Model: Point Value = 1 Point Value = 2 Point Value = 3 Point Value = 5 Age 41-60 Minor surgery BMI > 25 kg/m2 Swollen legs Varicose veins or History of unexplained or recurrent spontaneous Oral contraceptives or hormone replacement Sepsis (< 1 month) Serious lung disease, including pneumonia (< 1 month) Abnormal pulmonary function Acute myocardial infarction Congestive heart failure (< 1 month) History of inflammatory bowel disease Medical patient at bed rest Age 61-74 Arthroscopic surgery Major open surgery (> 45 min) Laparoscopic surgery (> 45 min) Malignancy Confined to bed (> 72 hours) Immobilizing plaster cast Central venous access Age >= 75 History of VTE Family history of VTE Factor V Leiden Prothrombin [id number] Lupus anticoagulant Anticardiolipin antibodies Elevated serum homocysteine Heparin-induced thrombocytopenia Other congenital or acquired thrombophilia Stroke (< 1 month) Elective arthroplasty Hip, pelvis, or leg fracture Acute spinal cord injury (< 1 month) Prophylaxis Regimen: Total Risk Factor Score Risk Level Prophylaxis Regimen 0-1 Low Early ambulation 2 Moderate Order ONE of the following: *Sequential Compression Device (SCD) *Heparin 5000 units SQ BID 3-4 Higher Order ONE of the following medications: *Heparin 5000 units SQ TID *Enoxaparin/Lovenox 40 mg SQ daily (WT < 150 kg, CrCl > 30 mL/min) *Enoxaparin/Lovenox 30 mg SQ daily (WT < 150 kg, CrCl > 10-29 mL/min) *Enoxaparin/Lovenox 30 mg SQ BID (WT < 150 kg, CrCl > 30 mL/min) AND/OR *Sequential Compression Device (SCD) 5 or more Highest Order ONE of the following medications: *Heparin 5000 units SQ TID (Preferred with Epidurals) *Enoxaparin/Lovenox 40 mg SQ daily (WT < 150 kg, CrCl > 30 mL/min) *Enoxaparin/Lovenox 30 mg SQ daily (WT < 150 kg, CrCl > 10-29 mL/min) *Enoxaparin/Lovenox 30 mg SQ BID (WT < 150 kg, CrCl > 30 mL/min) AND *Sequential Compression Device (SCD) Assessment and Plan - Assessment (1) Immunocompromised Code(s): D84.9 - Immunodeficiency, unspecified Status: Chronic Plan: continue immunosuppressants from transplant team bk virus and cmv being rechecked by her automation tester (2) Renal insufficiency Code(s): N28.9 - Disorder of kidney and ureter, unspecified Status: Chronic Plan: renal function is close to her baseline (3) History of simultaneous kidney and pancreas transplant Code(s): Z94.0 - Kidney transplant status; Z94.83 - Pancreas transplant status Status: Chronic Plan: continue current medications, no changes as of yet, she has an appt at [place] on the of this month (4) UTI (urinary tract infection) Code(s): N39.0 - Urinary tract infection, site not specified Status: Acute Plan: she showed me a copy of her u/a from [place] from last week, had bacteria, nitrites , wbcs she as urine culture pending from last night in the ER, Currently of cefepime (5) LFT elevation Code(s): R94.5 - Abnormal results of liver function studies Status: Chronic Plan: she states she developed this after her transplant, has been told she has fatty liver as well and needs to loose weight I did review her notes from [place] and she has had extensive work up including biopsy and they are currently monitoring. felt to be due in part to toxicity. - Plan Discussed Condition With: patient, family member
[2018-01-18] MEDS: Gabapentin 100 MG Capsule PO SCH (21:23)
[2018-01-19 06:43] LABS: Baso % (Auto) 0.3 % (0.0-2.0); Eos # (Auto) 0.2 th/mm3 (0.0-0.4); Eos % (Auto) 2.7 % (0.0-4.0); Hematocrit 33.1 % (35.0-46.0); Hemoglobin 11.1 gm/dL (11.6-15.3); Lymph # (Auto) 2.1 th/mm3 (1.0-4.8); Lymph % (Auto) 31.5 % (9.0-44.0); Mean Corpuscular HGB Conc 33.5 % (32.0-36.0); Mean Corpuscular Volume 92.5 fL (80.0-100.0); Mean Platelet Volume 8.1 fL (7.0-11.0); Mono # (Auto) 0.8 th/mm3 (0.0-0.9); Mono % (Auto) 11.8 % (0.0-8.0); Neut # (Auto) 3.5 th/mm3 (1.8-7.7); Neut % (Auto) 53.7 % (16.0-70.0); Platelet Count 257 th/mm3 (150-450); Red Blood Count 3.58 mil/mm3 (4.00-5.30); White Blood Count 6.6 th/mm3 (4.0-11.0)
[2018-01-19 06:53] LABS: Potassium 4.3 meq/L (3.5-5.1)
[2018-01-19 06:57] LABS: Calcium 8.7 mg/dL (8.5-10.1)
[2018-01-19 06:58] LABS: Carbon Dioxide 22.6 meq/L (21.0-32.0)
[2018-01-19 07:00] LABS: Phosphorus 2.7 mg/dL (2.5-4.9)
[2018-01-19] MEDS: Senna/Docusate Sodium 8.6/50 MG Tablet PO SCH (10:00)
[2018-01-19] MEDS: Spironolactone 25 MG Tablet PO SCH (10:00)
[2018-01-19] MEDS: Magnesium Oxide 400 MG Tablet PO SCH (10:00)
[2018-01-19] MEDS: Metoprolol Tartrate 100 MG Tablet PO SCH (10:00)
[2018-01-19 10:16] VITALS: RESP 20
[2018-01-19 12:24] VITALS: BP 119/56; PULSE 72; TEMP 98.4; O2SAT 96
--- NOTE | 2018-01-19 14:10 | P.PN ---
Subjective Interval history: no complaints, no chills , wants to go home Physical Exam Vital signs: Vital Signs 01/18/18 18:04 01/18/18 20:00 01/19/18 00:00 Temperature 99.0 F 98.7 F 97.5 F L Pulse Rate 84 90 84 Respiratory Rate 18 18 18 Blood Pressure 121/57 L 125/60 127/58 L Pulse Oximetry 95 97 98 01/19/18 08:00 01/19/18 12:00 Temperature 97.5 F L 98.4 F Pulse Rate 96 H 72 Respiratory Rate 20 20 Blood Pressure 119/60 119/56 L Pulse Oximetry 97 96 Intake & Output 01/18/18 01/19/18 01/19/18 18:59 06:59 18:59 Intake Total 920 / 920 1390 / 1390 500 / 500 Output Total 400 / 400 Balance 920 / 920 990 / 990 500 / 500 Weight 92.9 kg Intake: IV 920 / 920 100 / 100 NS Inj 1,000 ML @ 100 mls/hr IV 820 / 820 .CONT .Q10H [facility] Rx#:[id number] Maxipime Inj 2,000 MG In NS Inj 100 / 100 100 / 100 100 ML @ 200 mls/hr IV.SIG Q12H [facility] Rx#:[id number] Oral 1290 / 1290 500 / 500 Output: Urine 400 / 400 Other: # Voids 5 Date of Last Bowel Movement 01/17/18 01/18/18 - Constitutional no acute distress - Routine HEENT Exam Head: Present: normocephalic - Routine Neck Exam Present: supple - Routine Respiratory Exam Present: CTA bilaterally - Routine Cardiovascular Exam Present: RRR, S1, S2 - Routine Abdominal Exam Present: soft, normoactive bowel sounds - Routine Skin Exam Present: intact - Routine Neurological Exam Present: alert, oriented X3 - Detailed Neurological Exam: Coma Scale Eye Opening: Spontaneous - Routine Psychiatric Exam Present: normal affect, normal thought process Results - Labs CBC & Chem 7: 01/19/18 06:15 01/19/18 06:15 Laboratory Results - last 24 hr 01/18/18 01/19/18 01/19/18 05:33 06:15 06:15 CBC w Diff Auto diff final WBC 6.6 RBC 3.58 L Hgb 11.1 L Hct 33.1 L MCV 92.5 MCH 31.0 MCHC 33.5 RDW 13.0 Plt Count 257 MPV 8.1 Neut % (Auto) 53.7 Lymph % (Auto) 31.5 [place] % (Auto) 11.8 H Eos % (Auto) 2.7 Baso % (Auto) 0.3 Neut # (Auto) 3.5 Lymph # (Auto) 2.1 [place] # (Auto) 0.8 Eos # (Auto) 0.2 Baso # (Auto) 0.0 WBC Differential . Differential Comment . Sodium 138 Potassium 4.3 Chloride 107 Carbon Dioxide 22.6 Anion Gap 8 BUN 15 Creatinine 1.20 H Estimated GFR 47 L Random Glucose 98 Calcium 8.7 Phosphorus 2.7 Albumin 3.0 L CMV Qnt PCR IU/mL <35 BK Virus DNA Quant PCR None detected BK Virus DNA Copies Not Reportable Microbiology 01/17/18 17:40 Blood - Peripheral Aerobic Blood Culture - Preliminary No growth in 2 days 01/17/18 17:40 Blood - Peripheral Anaerobic Blood Culture - Preliminary No growth in 2 days 01/17/18 17:35 Blood - Peripheral Aerobic Blood Culture - Preliminary No growth in 2 days 01/17/18 17:35 Blood - Peripheral Anaerobic Blood Culture - Preliminary No growth in 2 days 01/17/18 17:30 Clean Catch Urine Urine Culture - Final >100,000 cfu/mL mixed gram positive inderjit (probable contaminantes) Assessment and Plan - Assessment (1) Immunocompromised Code(s): D84.9 - Immunodeficiency, unspecified Status: Chronic Plan: continue immunosuppressants from transplant team bk virus and cmv being rechecked by her pipe fitter ammonia were negative (2) Renal insufficiency Code(s): N28.9 - Disorder of kidney and ureter, unspecified Status: Chronic Plan: renal function is close to her baseline (3) History of simultaneous kidney and pancreas transplant Code(s): Z94.0 - Kidney transplant status; Z94.83 - Pancreas transplant status Status: Chronic Plan: continue current medications, no changes as of yet, she has an appt at [place] on the of this month (4) UTI (urinary tract infection) Code(s): N39.0 - Urinary tract infection, site not specified Status: Acute Plan: Urine culture showed mixed gram positive inderjit likely contaminants, discussed with dr Garcia who stated patient could be discharge on antibiotics she has started as outpatient and f/u with him (5) LFT elevation Code(s): R94.5 - Abnormal results of liver function studies Status: Chronic Plan: she states she developed this after her transplant, has been told she has fatty liver as well and needs to loose weight I did review her notes from [place] and she has had extensive work up including biopsy and they are currently monitoring. felt to be due in part to toxicity.
== END 2018-01-19 14:51 | disposition home or self-care (01) ==
LOC: PHED 17:03 → PHEDA 19:07 → PH3 21:02
PROVIDERS: ADMIT Legal Medicine; ATTEND Legal Medicine